=== PATIENT | male | born 1960 | race Caucasian/White ===

== ENCOUNTER 2023-01-29 08:52 | Outpatient (CLI) | payer OTHER | END 2023-01-29 08:54 | disposition home or self-care (01) | LOC: NUCLEAR 08:52 | PROVIDERS: ATTEND Internal Medicine | DX: I80.00 Phlebitis and thrombophlebitis of superficial vessels of unspecified lower extremity (principal); I82.90 Acute embolism and thrombosis of unspecified vein ==